=== PATIENT | male | born 1980 | race Caucasian/White ===

== ENCOUNTER 2017-03-06 12:49 | Emergency (ER) | payer OTHER ==
[~2017-03-06] VITALS: Ht 177.8 cm; Wt 72.6 kg
[2017-03-06] MEDS ORDERED: IV NORMAL SALINE 1000ML BAG 1,000 ML IV SCH (15:41)
[2017-03-06] MEDS ORDERED: diphenhydrAMINE 50 MG/ML VIAL IVP ONE (15:45)
[2017-03-06] MEDS ORDERED: PROCHLORPERAZINE 10 MG/2 ML VIAL. IV ONE (15:45)
[2017-03-06] MEDS ORDERED: fentaNYL PF VIAL 100 MCG/2 ML VIAL IV ONE (15:45)
[2017-03-06 16:13] LABS: BASO # 0.1 x10^3/uL (0.0-0.2); BASO % 1 % (0-3); EOS % 1 % (0-3); HEMATOCRIT 43.4 % (39.0-53.0); HEMOGLOBIN 14.6 g/dL (13.0-17.5); LYMPH # 2.9 x10^3/uL (1.0-4.8); LYMPH % 30 % (24-48); MEAN CORPUSCULAR HEMOGLOBIN 31 pg (25-35); MEAN CORPUSCULAR HGB CONC 34 g/dL (31-37); MEAN CORPUSCULAR VOLUME 91 fL (79-100); MONO % 8 % (0-9); NEUT % 59 % (31-73); PLATELET COUNT 225 x10^3/uL (140-400); RED BLOOD COUNT 4.79 x10^6/uL (4.30-5.70); WHITE BLOOD COUNT 9.7 x10^3/uL (4.0-11.0)
[2017-03-06 16:25] LABS: ANION GAP 7 (6-14); BLOOD UREA NITROGEN 8 mg/dL (8-26); BUN/CREATININE RATIO 11 (6-20); CALCIUM 9.1 mg/dL (8.5-10.1); CARBON DIOXIDE 31 mmol/L (21-32); CHLORIDE 104 mmol/L (98-107); CREATININE 0.7 mg/dL (0.7-1.3); GFR 129.1; GLUCOSE 92 mg/dL (70-99); POTASSIUM 4.6 mmol/L (3.5-5.1); SODIUM 142 mmol/L (136-145)
[2017-03-06 16:31] LABS: BARBITURATES NEG (NEG); BENZODIAZEPINES POS (NEG); CANNABINOIDS NEG (NEG); COCAINE NEG (NEG); METHADONE NEG (NEG); OPIATES POS (NEG); PHENCYCLIDINE NEG (NEG)
[2017-03-06 16:32] LABS: ALBUMIN 3.7 g/dL (3.4-5.0); ALBUMIN/GLOBULIN RATIO 1.2 (1.0-1.7); ALK PHOS 55 U/L (46-116); ALT (SGPT) 20 U/L (16-63); AST (SGOT) 11 U/L (15-37); MAGNESIUM 1.9 mg/dL (1.8-2.4); TOTAL BILIRUBIN 0.3 mg/dL (0.2-1.0); TOTAL PROTEIN 6.9 g/dL (6.4-8.2)
--- NOTE | 2017-03-06 16:41 | PHYS DOC ---
Past Medical History Past Medical History: Bipolar, Migraines Additional Past Medical Histor: PTSD Additional Past Surgical Histo: right shoulder surgery 11/29 "I was on hydros for my shoulder surgery" Alcohol Use: None Drug Use: None Adult General Chief Complaint Chief Complaint: HEADACHE HPI HPI Patient is a 36 year old male who presents with complaint of migraine headache for 8 days. Patient states that he is having headache that extends from the front of his head over the top into the neck. Patient states that he has had a associated tightness in his neck and upper extremities associated with the symptoms. 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 Patient states that he feels this triggered his current headaches. Patient states however that his symptoms have been different from his normal migraine headaches. Patient states that he has "cluster migraines" which occur once a year. Patient states that a year ago he received IV medications which seemed to help with the symptoms. Patient states that he was seen at [facility] emergency department at [facility] where he was treated with Toradol and "other medications" which she was unable to name. Patient states that this did not resolve his headache. Patient has not followed up with his primary doctor since onset. Patient states that he has had associated blurring of vision and difficulty with balance since onset of symptoms which is unusual for his typical headaches. Patient currently rates his pain as 10 out of 10. Review of Systems Review of Systems Constitutional: Denies fever or chills [] Eyes: Denies change in visual acuity, redness, or eye pain [] HENT: Denies nasal congestion or sore throat [] Respiratory: Denies cough or shortness of breath [] Cardiovascular: Denies chest pain or edema [] GI: Denies abdominal pain, nausea, vomiting, bloody stools or diarrhea [] : Denies dysuria or hematuria [] Musculoskeletal: "Muscle spasms" in her arms, back pain, neck pain [] Integument: Denies rash or skin lesions [] Neurologic: Headache, denies focal weakness or sensory changes [] Current Medications Current Medications Current Medications Medications (Trade) Dose Ordered Sig/Therese Start Time Stop Time Status Last Admin Dose Admin Diphenhydramine HCl (Benadryl) 25 mg 1X ONCE 03/06/17 15:45 03/06/17 15:47 DC 03/06/17 16:25 25 MG Fentanyl Citrate (Fentanyl 2ml Vial) 50 mcg 1X ONCE 03/06/17 15:45 03/06/17 15:47 DC 03/06/17 16:28 50 MCG Prochlorperazine Edisylate (Compazine) 10 mg 1X ONCE 03/06/17 15:45 03/06/17 15:47 DC 03/06/17 16:26 10 MG Sodium Chloride 1,000 ml @ 1,000 mls/hr Q1H 03/06/17 15:41 03/06/17 16:40 DC 03/06/17 16:23 1,000 MLS/HR Allergies Allergies Allergies Coded Allergies Type Severity Reaction Last Updated Verified No Known Drug Allergies 03/06/17 No Physical Exam Physical Exam Constitutional: Alert, afebrile, appears in [id number] discomfort. [] HENT: Normocephalic, atraumatic, bilateral external ears normal, oropharynx moist, no oral exudates, nose normal. [] Eyes: PERRLA, EOMI, photophobia present, conjunctiva normal, no discharge. [] Neck: Normal range of motion, no tenderness, supple, no stridor. [] Cardiovascular:Heart rate regular rhythm, no murmur [] Lungs & Thorax: Bilateral breath sounds clear to auscultation [] Abdomen: Bowel sounds normal, soft, no tenderness, no masses, no pulsatile masses. [] Skin: Warm, dry, no erythema, no rash. [] Back: No tenderness, no CVA tenderness. [] Extremities: No tenderness, no cyanosis, no clubbing, ROM intact, no edema. [] Neurologic: Alert and oriented X 3, normal motor function, normal sensory function, no focal deficits noted. [] Current Patient Data Vital Signs Vital Signs Date Time Temp Pulse Resp B/P (MAP) Pulse Ox O2 Delivery O2 Flow Rate FiO2 03/06/17 16:28 15 100 Room Air 03/06/17 13:54 98.0 86 118/83 (95) 98.0 Lab Values Laboratory Tests Test 03/06/17 16:00 White Blood Count 9.7 x10^3/uL (4.0-11.0) Red Blood Count 4.79 x10^6/uL (4.30-5.70) Hemoglobin 14.6 g/dL (13.0-17.5) Hematocrit 43.4 % (39.0-53.0) Mean Corpuscular Volume 91 fL (79-100) Mean Corpuscular Hemoglobin 31 pg (25-35) Mean Corpuscular Hemoglobin Concent 34 g/dL (31-37) Red Cell Distribution Width 16.0 % (11.5-14.5) H Platelet Count 225 x10^3/uL (140-400) Neutrophils (%) (Auto) 59 % (31-73) Lymphocytes (%) (Auto) 30 % (24-48) Monocytes (%) (Auto) 8 % (0-9) Eosinophils (%) (Auto) 1 % (0-3) Basophils (%) (Auto) 1 % (0-3) Neutrophils # (Auto) 5.7 x10^3uL (1.8-7.7) Lymphocytes # (Auto) 2.9 x10^3/uL (1.0-4.8) Monocytes # (Auto) 0.8 x10^3/uL (0.0-1.1) Eosinophils # (Auto) 0.1 x10^3/uL (0.0-0.7) Basophils # (Auto) 0.1 x10^3/uL (0.0-0.2) Urine Collection Type Unknown Urine Color Straw Urine Clarity Clear Urine pH 8.0 Urine Specific Davis <=1.005 Urine Protein Negative mg/dL (NEG-TRACE) Urine Glucose (UA) Negative mg/dL (NEG) Urine Ketones (Stick) Negative mg/dL (NEG) Urine Blood Negative (NEG) Urine Nitrite Negative (NEG) Urine Bilirubin Negative (NEG) Urine Urobilinogen Dipstick 0.2 mg/dL (0.2 mg/dL) Urine Leukocyte Esterase Negative (NEG) Urine RBC 0 /HPF (0-2) Urine WBC Rare /HPF (0-4) Urine Squamous Epithelial Cells Few /LPF Urine Bacteria 0 /HPF (0-FEW) Sodium Level 142 mmol/L (136-145) Potassium Level 4.6 mmol/L (3.5-5.1) Chloride Level 104 mmol/L (98-107) Carbon Dioxide Level 31 mmol/L (21-32) Anion Gap 7 (6-14) Blood Urea Nitrogen 8 mg/dL (8-26) Creatinine 0.7 mg/dL (0.7-1.3) Estimated GFR (Cockcroft-Gault) 129.1 BUN/Creatinine Ratio 11 (6-20) Glucose Level 92 mg/dL (70-99) Calcium Level 9.1 mg/dL (8.5-10.1) Magnesium Level 1.9 mg/dL (1.8-2.4) Total Bilirubin 0.3 mg/dL (0.2-1.0) Aspartate Amino Transferase (AST) 11 U/L (15-37) L Alanine Aminotransferase (ALT) 20 U/L (16-63) Alkaline Phosphatase 55 U/L (46-116) Total Protein 6.9 g/dL (6.4-8.2) Albumin 3.7 g/dL (3.4-5.0) Albumin/Globulin Ratio 1.2 (1.0-1.7) Urine Opiates Screen Pos (NEG) Urine Methadone Screen Neg (NEG) Urine Barbiturates Neg (NEG) Valproic Acid Level 80 mcg/mL (50-100) Valproic Acid Last Dose Date 03/06/17 Valproic Acid Last Dose Time 0800 Urine Phencyclidine Screen Neg (NEG) Urine Amphetamine/Methamphetamine Neg (NEG) Urine Benzodiazepines Screen Pos (NEG) Urine Cocaine Screen Neg (NEG) Urine Cannabinoids Screen Neg (NEG) Urine Ethyl Alcohol Neg (NEG) Laboratory Tests 03/06/17 16:00 Laboratory Tests 03/06/17 16:00 EKG EKG Interpreted by me: Heart rate 56, sinus rhythm, normal intervals, normal axis, no acute ST/T-wave abnormalities present [] Radiology/Procedures Radiology/Procedures [facility] [address] [place] [address] IMAGING REPORT Signed PATIENT: IVORY DE LOS SANTOS ACCOUNT: [id number] : 1980 LOCATION: ER AGE: 36 SEX: M EXAM STATUS: REG ER ORD. PHYSICIAN: BARBARA COTA MD REASON: headache, difficulty with balance for 8 days, SC knows PROCEDURE: BRAIN W/O CONTRAST MRI Brain without IV contrast. History: Headaches, speech difficulty for 8 days, balance issues. Comparison: None. Technique: Routine multiplanar multisequence MRI of the brain was performed without intravenous administration. Findings: Ventricles and sulci appear appropriate for patient age. There is no shift in midline structures; there is no evidence of intracranial mass or significant mass effect. There is no evidence of acute intracranial hemorrhage. No abnormal extra-axial fluid collections are identified. There is no restricted diffusion to suggest acute infarction. Major intracranial vascular flow voids appear intact. Left maxillary sinus demonstrates small mucus retention cyst. Impression: 1. No acute intracranial process. Electronically signed by: Jame Ghotra MD (03/06/2017 5:35 PM) [facility] DICTATED and SIGNED BY: JAME GHOTRA MD DATE: 03/06/17 173 CC: BARBARA COTA MD; UNKNOWN PCP NAME ~ [] Course & Med Decision Making Course & Med Decision Making Pertinent Labs and Imaging studies reviewed. (See chart for details) Patient was given IV fentanyl, Compazine, and Benadryl in the emergency department. The patient's MRI was negative for acute findings. Patient remains in stable condition and symptoms have improved. The patient's symptoms appear to be mediated by musculoskeletal pain that is causing secondary exacerbation of migraine symptoms. The patient will be treated with Flexeril and Naprosyn with recommended follow-up in the next 2-3 days with patient's primary doctor for reevaluation. Advised return emergency department for any worsening symptoms. Patient voiced understanding and in agreement with treatment plan. Dragon Disclaimer Dragon Disclaimer This electronic medical record was generated, in whole or in part, using a voice recognition dictation system. Departure Departure Impression: Primary Impression: Headache Additional Impression: Cervical strain Disposition: 01 HOME, SELF-CARE Condition: IMPROVED Referrals: UNKNOWN PCP NAME (PCP) Patient Instructions: General Headache Without Cause Additional Instructions: Follow-up with your primary doctor in 2-3 days for reevaluation. Return to the emergency department for any worsening symptoms. Scripts Naproxen (NAPROSYN) 500 Mg Tablet 1 TAB PO BID, #20 TAB 0 Refills Prov: BARBARA COTA MD 03/06/17 Cyclobenzaprine Hcl (CYCLOBENZAPRINE HCL) 10 Mg Tablet 1 TAB PO TID Y for MUSCLE SPASMS, #30 TAB Prov: BARBARA COTA MD 03/06/17 Problem Qualifiers Primary Impression: Headache Headache type: unspecified Headache chronicity pattern: acute headache Intractability: not intractable Qualified Codes: R51 - Headache Additional Impression: Cervical strain Encounter type: initial encounter Qualified Codes: S16.1XXA - Strain of muscle, fascia and tendon at neck level, initial encounter BARBARA COTA MD Mar 06, 2017 16:41
[2017-03-06 16:56] LABS: BILIRUBIN,URINE NEGATIVE (NEG); GLUCOSE,URINE NEGATIVE (NEG); NITRITE,URINE NEGATIVE (NEG); PROTEIN,URINE NEGATIVE (NEG-TRACE); UROBILINOGEN,URINE 0.2 mg/dL (0.2 mg/dL)
[2017-03-06 17:22] LABS: BACTERIA,URINE 0 /HPF (0-FEW); RBC,URINE 0 /HPF (0-2); SQUAMOUS EPITHELIAL CELL,UR FEW /LPF; WBC,URINE RARE /HPF (0-4)
--- NOTE | 2017-03-06 17:38 | RAD ---
MRI Brain without IV contrast. History: Headaches, speech difficulty for 8 days, balance issues. Comparison: None. Technique: Routine multiplanar multisequence MRI of the brain was performed without intravenous administration. Findings: Ventricles and sulci appear appropriate for patient age. There is no shift in midline structures; there is no evidence of intracranial mass or significant mass effect. There is no evidence of acute intracranial hemorrhage. No abnormal extra-axial fluid collections are identified. There is no restricted diffusion to suggest acute infarction. Major intracranial vascular flow voids appear intact. Left maxillary sinus demonstrates small mucus retention cyst. Impression: 1. No acute intracranial process. Electronically signed by: Jame Ghotra MD (03/06/2017 5:35 PM) [facility]
[2017-03-06 17:55] VITALS: BP 99/57
[2017-03-06] MEDS ORDERED: NAPR500T PO (18:02)
[2017-03-06] MEDS ORDERED: CYCL10TA2 PO (18:02)
--- NOTE | 2017-03-07 10:08 | EKG ---
[facility] [address] [place] [address] Test Date: 2017-03-06 Test Time: 16:21:05 Pat Name: IVORY DE LOS SANTOS Department: Room: Gender: Service Representative: : 1980 Requested By: BARBARA COTA Order Number: [id number] Reading MD: Measurements Intervals [place] Rate: 56 P: 47 WI: 150 QRS: 71 QRSD: 92 T: 48 QT: 390 QTc: 379 Interpretive Statements SINUS RHYTHM NO SPECIFIC ECG ABNORMALITIES RI6.01 No previous ECG available for comparison
== END 2017-03-06 18:09 | disposition home or self-care (01) ==
LOC: ER 12:49
DX: S16.1XXA Strain of muscle, fascia and tendon at neck level, initial encounter (principal); R51 Headache; G43.909 Migraine, unspecified, not intractable, without status migrainosus; F43.10 Post-traumatic stress disorder, unspecified; F31.9 Bipolar disorder, unspecified; X58.XXXA Exposure to other specified factors, initial encounter; Y93.89 Activity, other specified; Y99.8 Other external cause status; Y92.89 Other specified places as the place of occurrence of the external cause
CPT/HCPCS: 36415; 70551; 80053; 80164; 80307; 81001; 83735; 85025; 93005; 96361; 96374; 96375; 99285; J0780; J1200; J3010; J7030; G0479